=== PATIENT | male | born 1965 | race Caucasian/White ===

== ENCOUNTER 2020-08-24 16:50 | Inpatient (IN) | payer MEDICARE, OTHER ==
[~2020-08-24] VITALS: Ht 177.8 cm; Wt 93.9 kg
[~2020-08-24 16:50] MED LIST: DULOXETINE HCL60 MG PO
[2020-08-24] MEDS ORDERED: COZAAR 50MG TAB50 MG PO (21:59)
[2020-08-24] MEDS ORDERED: BUTALB-ACETAMI1 EAC1 PO (22:00)
[2020-08-24] MEDS ORDERED: LITHIUM CARBON300 M3 PO (22:01)
[2020-08-24] MEDS ORDERED: GABAPENTIN800 MG PO (22:01)
[2020-08-24] MEDS ORDERED: LOVASTATIN20 MG PO (22:03)
[2020-08-24] MEDS ORDERED: LEVOTHYROXINE50 MCG PO (22:03)
[2020-08-24] MEDS ORDERED: BAYER CHEWABLE81 MG PO (22:04)
[2020-08-24 23:52] LABS: HEMOGLOBIN 13.4 gm/dl (14.0-17.5); RED BLOOD COUNT 4.42 M/UL (4.20-5.50); WHITE BLOOD COUNT 14.9 K/UL (4.5-11.0)
[2020-08-25 00:19] LABS: BUN/CREATININE RATIO 10 (0-10)
--- NOTE | 2020-08-25 01:12 | NUR ---
08/25/20 0112 MD WAS ADVISED BY PATIENT AND NURSE THAT WHEN APPLYING SPLINT THAT PATIENTS RIGHT TIB FIB WAS FRACTURED. MD CONTINUED TO APPLY SPLINT TO LEFT LOWER EXTREMITY ANYWAY. WHEN CONFRONTED ABOUT APPLYING TO RIGHT LEG MD STATED "THAT LEG IS FINE" TATIANA TURNER,RN PHYLLIS VALLE,RN
[2020-08-25 09:02] LABS: HEMOGLOBIN 12.8 gm/dl (14.0-17.5); RED BLOOD COUNT 4.27 M/UL (4.20-5.50)
[2020-08-25 09:05] LABS: WHITE BLOOD COUNT 10.9 K/UL (4.5-11.0)
[2020-08-25 09:26] LABS: BUN/CREATININE RATIO 13 (0-10)
[2020-08-26 02:46] LABS: RED BLOOD COUNT 4.03 M/UL (4.20-5.50); WHITE BLOOD COUNT 9.3 K/UL (4.5-11.0)
[2020-08-26 03:44] LABS: BUN/CREATININE RATIO 8 (0-10)
[2020-08-26] MEDS ORDERED: IBU800 MG PO (12:52)
[2020-08-26] MEDS ORDERED: ENOXAPARIN40 MG/0.4 SC (12:52)
--- NOTE | 2020-08-26 13:06 | NUR ---
patient requires hospital bed for positioning of body not feasible in normal bed to alleviate pain, and also requires frequent changes in body positiong.
[2020-08-26] MEDS ORDERED: OXYCODONE HCL10 MG PO (13:41)
--- NOTE | 2020-08-26 16:18 | NUR ---
REPORT GIVEN TO [facility] ADMITTING NURSE TRINIDAD BAXTER.
== END 2020-08-26 17:13 | disposition home or self-care (01) | DRG 494 ==
LOC: ER1 16:50 → M/S 20:30 → CDU 20:30 → M/S 22:30
PROVIDERS: Internal Medicine; Orthopaedic Surgery; ADMIT Family Medicine
PROC: 0QSG05Z Reposition Right Tibia with External Fixation Device, Open Approach (ICD-10-PCS; principal; 2020-08-25 09:00)
DX: S82.871A Displaced pilon fracture of right tibia, initial encounter for closed fracture (principal); S92.002A Unspecified fracture of left calcaneus, initial encounter for closed fracture; Z20.822 Contact with and (suspected) exposure to COVID-19; I10 Essential (primary) hypertension; F31.9 Bipolar disorder, unspecified; E03.9 Hypothyroidism, unspecified; D72.829 Elevated white blood cell count, unspecified; E87.6 Hypokalemia; W18.39XA Other fall on same level, initial encounter; E78.00 Pure hypercholesterolemia, unspecified; Z87.81 Personal history of (healed) traumatic fracture; Z99.3 Dependence on wheelchair; Z88.0 Allergy status to penicillin; Z88.8 Allergy status to other drugs, medicaments and biological substances
CPT/HCPCS: 36415; 71045; 72128; 72131; 72170; 73590; 73610; 73630; 73700; 76000; 80048; 83735; 84132; 85025; 86850; 86900; 86901; 93005; 96374; 96375; 96376; 99285; C1713; J1170; J1650; J1885; J2001; J2270; J2405; J2704; J3010; U0002

== ENCOUNTER → 2020-09-11 | Outpatient (CLI) | payer MEDICARE, MEDICAID ==
[~2020-09-11] MED LIST changes: +BAYER CHEWABLE81 MG PO; +BUTALB-ACETAMI1 EAC1 PO; +COZAAR 50MG TAB50 MG PO; +ENOXAPARIN40 MG/0.4 SC; +GABAPENTIN800 MG PO; +IBU800 MG PO; +LEVOTHYROXINE50 MCG PO; +LITHIUM CARBON300 M3 PO; +LOVASTATIN20 MG PO; +OXYCODONE HCL10 MG PO
[2020-09-11 12:19] LABS: HEMOGLOBIN 13.1 gm/dl (14.0-17.5); RED BLOOD COUNT 4.42 M/UL (4.20-5.50); WHITE BLOOD COUNT 7.9 K/UL (4.5-11.0)
[2020-09-11 12:47] LABS: BUN/CREATININE RATIO 7 (0-10)
== END ==
LOC: OPSV2 10:30
PROVIDERS: Orthopaedic Surgery
DX: Z01.818 Encounter for other preprocedural examination (principal); S92.002A Unspecified fracture of left calcaneus, initial encounter for closed fracture
CPT/HCPCS: 36415; 71046; 80048; 85027; 93005

== ENCOUNTER → 2020-09-13 | Day surgery (SDC) | payer MEDICARE, MEDICAID ==
[~2020-09-13] VITALS: Ht 177.8 cm; Wt 93.9 kg
[2020-09-13 07:01] LABS: BUN/CREATININE RATIO 8 (0-10)
== END | disposition home or self-care (01) ==
LOC: OR 05:48
PROVIDERS: Orthopaedic Surgery
PROC: 0QPGX5Z Removal of External Fixation Device from Right Tibia, External Approach (ICD-10-PCS; 2020-09-13)
PROC: 3E0T3BZ Introduction of Anesthetic Agent into Peripheral Nerves and Plexi, Percutaneous Approach (ICD-10-PCS; 2020-09-13)
PROC: 3E0T3BZ Introduction of Anesthetic Agent into Peripheral Nerves and Plexi, Percutaneous Approach (ICD-10-PCS; 2020-09-13)
PROC: 0QSG04Z Reposition Right Tibia with Internal Fixation Device, Open Approach (ICD-10-PCS; principal; 2020-09-13 08:35)
DX: S82.871A Displaced pilon fracture of right tibia, initial encounter for closed fracture (principal); S92.002A Unspecified fracture of left calcaneus, initial encounter for closed fracture; G89.18 Other acute postprocedural pain; I10 Essential (primary) hypertension; E78.5 Hyperlipidemia, unspecified; E03.9 Hypothyroidism, unspecified; G62.9 Polyneuropathy, unspecified; Z20.822 Contact with and (suspected) exposure to COVID-19; Z79.899 Other long term (current) drug therapy; Z88.0 Allergy status to penicillin; Z88.5 Allergy status to narcotic agent; W13.8XXA Fall from, out of or through other building or structure, initial encounter
CPT/HCPCS: 73590; 76000; 80048; C1713; J1100; J2001; J2250; J2405; J2704; J2710; J2795; J3010; J7120